=== PATIENT | male | born 1945 | race Caucasian/White ===

== ENCOUNTER 2019-06-02 10:40 | Inpatient (IN) | payer OTHER ==
--- NOTE | 2019-05-28 14:15 | HP ---
AMENDED REPORT NOW INCLUDES DESIGNATED COSIGNER HISTORY AND PHYSICAL: DATE OF ADMISSION/SURGERY: 06/02/19 DATE OF OFFICE VISIT: 05/23/19 SURGEON: Marjorie Pisano MD * (DICTATED BY JODY BONILLA) PROCEDURE: Left total knee replacement. CHIEF COMPLAINT: Left knee pain. HISTORY OF PRESENT ILLNESS: Mr. Evans is a 73-year-old gentleman who injured his left knee back in 1990. Since then he has had increasing pain in the left knee. Over the last year, he has had a 4/10 daily aching, chronic pain along the joint line of his knee. He can no longer walk more than a block without severe pain. He has difficulty stair climbing, kneeling and knee bending. He is starting to lose range of motion in the knee. He is unable to exercise because of the pain. He has tried antiinflammatories, physical therapy , brace wear, use of cane, steroid and lubricant injections in the past. At this point, he has failed conservative treatment. He is ready for surgical intervention. PAST MEDICAL HISTORY: 1. Hypertension. 2. Hypercholesteremia. 3. Osteoarthritis. 4. Prostate cancer. PAST SURGICAL HISTORY: 1. Right hand surgery in 1989. 2. Bladder surgery in 2002. MEDICATIONS: 1. Tamsulosin HCL 0.4 mg 1 p.o. daily. 2. Lisinopril 20 mg half a tablet p.o. daily. 3. Simvastatin 40 mg 1 p.o. daily. 4. Aspirin p.o. p.r.n. 5. Ibuprofen p.o. p.r.n. ALLERGIES: AMOXICILLIN and PENICILLIN. FAMILY HISTORY: History of coronary artery disease, hypertension, and stroke. SOCIAL HISTORY: The patient is retired. He lives alone. He is a former smoker. He smoked 20 cigarettes per day for 20 years, but he quit 30 years ago. Alcohol, he consumes about an alcoholic drink per week. He is normally active with walking and gardening. He is right hand dominant. REVIEW OF SYSTEMS: General: Negative for fevers, chills, night sweats, unexplained weight loss or gain. No known anesthesia problems. HEENT: Negative for headache, lightheadedness, syncopal episodes, visual changes. Integumentary: Negative for abrasions, lesions, open wounds. Positive for psoriasis on bilateral hands. Cardiothoracic: Negative for hypertension, chest pain, palpitations or edema. Respiratory: Negative for shortness of breath with exertion, chronic cough, wheezing. GI: Negative for nausea, vomiting, diarrhea, constipation, or GERD. : Negative for nocturia, urinary frequency, urgency, history of UTIs, or kidney problems. Positive for prostate cancer. Musculoskeletal: Positive for left knee pain. Negative for chronic or intermittent back pain or history of fractures. Neurologic: Negative for paraesthesias, numbness, history of seizure, stroke, poor balance. Negative for anxiety , depression. Endocrine: Negative for diabetes or thyroid issues. Hematologic: Negative for easy bruising, anemia, bleeding disorders, history of DVT. ID: Negative for history of MRSA infection, hep C, or HIV. PHYSICAL EXAMINATION GENERAL: Well-developed, well-nourished 73-year-old male in no acute distress. VITAL SIGNS: Height 64.5 inches, weight 191 pounds. Pulse 76, BP 138/68, respirations 18, pain level 2, BMI 32.3. HEENT: Normocephalic, atraumatic. PERRLA. Extraocular movements intact. NECK: Supple. No palpable lymph nodes. Throat is clear. PULMONARY: Lungs are clear to auscultation bilaterally. No wheezes, rales, or rhonchi. CARDIO: Regular rate and rhythm. S1 and S2 normal. No murmurs, rubs, or gallops. No edema. ABDOMEN: Positive bowel sounds, soft, nontender. MUSCULOSKELETAL: Bilateral lower extremity: The patient's skin is intact. No abrasions or open wounds. No palpable masses or lymph nodes. Distally no edema , varicosities or hyperreflexia. Left knee shows moderate to large effusion. There is varus deformity of the knee. He has 10 to 120 degrees of flexion at the knee. He has tenderness along the medial joint line. No varus or valgus instability. Negative Zachariah's. He has chronically enlarged appearing arthritic joint. Right knee shows no obvious effusions. No tenderness to palpation. Range of motion is 0 to 130 degrees of flexion. He has 5/5 ankle dorsiflexion and plantarflexion strength bilaterally. Full sensation to light touch in all nerves distributions and 2+ DP pulses bilaterally. NEUROLOGIC: A and O x3. Cranial nerves II through XII intact. Sensation is intact to light touch. DIAGNOSTIC STUDIES/LAB DATA: Multiple views of the patient's left knee shows severe end-stage arthritis. There is medial [id number] contact. There is tricompartmental degenerative arthritis, osteophyte formation and joint space narrowing. IMPRESSION: Left knee severe osteoarthritis. PLAN: The patient is scheduled to undergo left total knee arthroplasty with Dr. Pisano on 06/02/19. Dr. Pisano went over the procedure, as well as the risks and benefits with the patient. He elected to proceed. He will return to the office 10 to 14 days postop for followup and suture removal. He will be discharged from the hospital with Percocet for postoperative pain management and I-STOP was performed today in the office. JODY BROWN [id number]/CPS #: [id number]
--- NOTE | 2019-05-28 15:05 | HP ---
HISTORY AND PHYSICAL: DATE OF ADMISSION/SURGERY: 06/02/19 DATE OF OFFICE VISIT: 05/23/19 ATTENDING PHYSICIAN: Dr. Marjorie Pisano. PROCEDURE: Left total knee replacement. CHIEF COMPLAINT: Left knee pain. HISTORY OF PRESENT ILLNESS: Mr. Evans is a 73-year-old gentleman who injured his left knee back in 1990. Since then, he has had increasing pain in his left knee over the last year. He has had a 4 /10 daily aching, chronic pain along the joint line of his knee. He can no longer walk more than a b lock without severe pain. He has difficulty stair climbing, kneeling, and bending his left knee. He is starting to lose range of motion in the knee. He is unable to exercise because of the pain. He has tried anti-inflammatories, physical therapy, brace wear, use of cane, steroid and lubricant injec tions in the past without relief. At this point, he is ready for a total knee arthroplasty. PAST MEDICAL HISTORY: Hypertension, hypercholesterolemia, osteoarthritis, and prostate cancer. PAST SURGICAL HISTORY: He had right hand surgery in the . He had bladder surgery in 2002. MEDICATIONS: 1. Tamsulosin HCl. DICTATION ENDS HERE JODY BROWN [id number]/[facility] #: [id number]
--- NOTE | 2019-06-01 16:18 | CONS ---
CC: Dr. Pisano; Dr. Dustin Mijares * CONSULTATION NOTE: DATE OF CONSULT: 06/01/19 DATE OF ADMISSION: 06/02/19 HISTORY OF PRESENT ILLNESS: Mr. Evans is a 73-year-old white male who was diagnosed with prostate cancer in 2006 and was treated with brachytherapy and external beam radiation therapy at [facility] in April 2007. He had PSA recurrence and has been on intermittent hormone ablation therapy. He also developed a bladder tumor which was resected in 2010 and had periodic cystoscopies which showed no recurrent tumors. The patient is known to have a tight urethral stricture and whenever a followup cystoscopy needs to be performed, urethral dilation had to be performed.. The patient is scheduled to undergo a total left knee replacement by Dr. Pisano on 06/02/19. The patient was seen in my office today for cystoscopy and Soni catheter placement. Cystoscopy was performed showing recurrence of the tight stricture at the membranous urethra. The stricture was sequentially dilated to 18-Citizen [place] and the patient had a 14-Citizen [place] Coude catheter placed inside the bladder, draining clear urine. The patient received gentamicin 180 mg IM at the time of the instrumentation to decrease the risk of urinary tract infections with the anticipated joint replacement. PLAN/RECOMMENDATIONS: My recommendation is to keep the Soni catheter in place until the patient is ready to be discharged. The Soni catheter can then be removed and the patient monitored for good bladder emptying. If he has any difficulty voiding, please call me for evaluation. I will see the patient back in my office in 2 months for followup cystoscopy. [id number]/CPS #: [id number] MTDD
[~2019-06-02 10:40] MED LIST: Acetaminophen TAB* 325 MG PO ONE; Buffered Lidocaine 1% SYRIN* 1 ML/SYRINGE INTRADERM ONE; Dexamethasone TAB* 4 MG PO ONE; DiMENhydriNATE IV* 50 MG/ML VIAL IV PUSH PRN; Famotidine IV* 10 MG/ML 2 ML (20 mg) IV ONE; Gabapentin CAP(*) 300 MG PO ONE; HYDROmorphone INJ1* 1 MG/ML SYRINGE IV PRN; Lactated Ringers 1000 ML Bag* 1,000 ML IV SCH; Naloxone* 0.4 MG/ML 1 ML VIAL IV PRN; Ondansetron ODT TAB* 4 MG PO ONE; PROCHLORPERAZINE INJ 5 MG/ML 2 ML VIAL IV PRN; Tranexamic Acid 1,000 MG in NS 0.9% 50 ML* (outpatient use) IV SCH; celeCOXIB CAP* 200 MG PO ONE; fentaNYL* 50 MCG/ML 2 ML VIAL (100 MCG VIAL) IV PRN; oxyCODONE/Acetamin 5/325 MG* TAB PO PRN
--- OUTSIDE RECORDS SUMMARY | 2019-06-02 10:42 | XMS REPORT | Continuity of Care Document ---
:1945 External Reference #:[id number] Author Name JAKE Garcia Address [address] [place] [address] Care Team Providers Name Role Phone Dustin Mijares DO Primary Care Physician Unavailable Payers Date Identification Numbers Payment Provider Subscriber Policy Number: [id number] [facility]ly [facility] (Medicare) Lefty Evans PayID: [id number] [place] [id number] Effective: 1995 Group Name: Workers[employer] Lefty Evans [address] [place] [address] Problems Active Problems Provider Date Localized, primary osteoarthritis Marjorie Pisano M.D. Onset: 04/25/2019 Family History Date Family Member(s) Observation Comments General Heart Disease General Stroke General Hypertension Social History Type Date Description Comments Sex Unknown Lives With Alone Occupation Retired ETOH Use consumes 1-2 beers per day Tobacco Use Start: Unknown Patient is a former quit 30 years ago, End: Unknown smoker smoked 20 cigarettes a day for 20 years Recreational Drug Use Denies Drug Use Smoking Status Reviewed: 05/23/19 Patient is a former quit 30 years ago, smoker smoked 20 cigarettes a day for 20 years Exercise Type/Frequency Exercises regularly 3-5 miles walking daily Allergies, Adverse Reactions, Alerts Active Allergies Reaction Severity Comments Date Amoxicillin 11/11/2017 Penicillin Severe can't breathe 04/25/2019 Medications Active Medications SIG Qnty Indications Ordering Provider Date Tamsulosin HCL 1 by mouth every Unknown 0.4mg day Capsules Lisinopril 1/2 by mouth Unknown 20mg Tablets every day Simvastatin 1 by mouth every Unknown 40mg Tablets day Aspirin Unknown Ibuprofen Unknown History Medications Aspir-Low 1 by mouth every day Unknown - 04/24/[address] Vital Signs Date Vital Result Comment 05/23/2019 1:30pm Height 64.5 inches 5'4.50" Weight 191.00 lb Heart Rate 76 /min BP Systolic 138 mmHg BP Diastolic 68 mmHg Respiratory Rate 18 /min Pain Level 2 BMI (Body Mass Index) 32.3 kg/m2 04/25/2019 8:34am Height 64.5 inches 5'4.50" Weight 192.00 lb Heart Rate 52 /min BP Systolic 160 mmHg BP Diastolic 94 mmHg BMI (Body Mass Index) 32.4 kg/m2 12/02/2017 12:32pm Height 66 inches 5'6" Weight 175.25 lb Heart Rate 50 /min BP Systolic Sitting 140 mmHg Rue reg cuff BP Diastolic Sitting 74 mmHg Rue reg cuff BP Systolic Standing 148 mmHg Lue reg cuff BP Diastolic Standing 76 mmHg Lue reg cuff BP Systolic Lying Down 146 mmHg Lue reg cuff BP Diastolic Lying Down 76 mmHg Lue reg cuff Respiratory Rate 16 /min BMI (Body Mass Index) 28.3 kg/m2 Ejection Fraction 60-65% 11/06/2017-echo Results Test Date Facility Test Result H/L Range Note Inr/Protime 05/20/2019 [facility] Inr 0.91 N 0.82-1.[address] [place] [address] [phone] Laboratory test 05/20/2019 [facility] Partial 35.7 seconds N 26.0-38.[address] [place] [address] PTT [phone] Urinalysis 05/20/2019 [facility] Urine Color Yellow Profile [address] [place] [address] [phone] Urine Appearance Clear Urine Specific Alicia 1.017 N 1.010-1.030 Urine pH 5.0 N 5-9 Urine Urobilinogen Negative Negative Urine Ketones Negative Negative Urine Protein Negative Negative Urine Leukocytes Negative Negative Urine Blood Negative Negative Urine Nitrite Negative Negative Urine Bilirubin Negative Negative Urine Glucose Negative Negative Comp Metabolic Panel 05/20/2019 [facility] Sodium 141 mmol/L N [address] [place] [address] [phone] Potassium 4.3 mmol/L N 3.5-5.0 Chloride 108 mmol/L N 101-111 Co2 Carbon Dioxide 25 mmol/L N 22-32 Anion Gap 8 mmol/L N 2-11 Glucose 96 mg/dL N 70-100 Blood Urea Nitrogen 24 mg/dL N 6-24 Creatinine 1.09 mg/dL N 0.67-1.17 BUN/Creatinine Ratio 22.0 High 8-20 Calcium 9.7 mg/dL N 8.6-10.3 Total Protein 6.8 g/dL N 6.4-8.9 Albumin 4.2 g/dL N 3.2-5.2 Globulin 2.6 g/dL N 2-4 Albumin/Globulin Ratio 1.6 N 1-3 Total Bilirubin 0.50 mg/dL N 0.2-1.0 Alkaline Phosphatase 58 U/L N 34-104 Alt 16 U/L N 7-52 Ast 17 U/L N 13-39 Egfr Non- 66.1 >60 Egfr 80.0 >60 2 Type & Screen 05/20/2019 [facility] Patient Blood Type AB Positive [address] [place] [address] [phone] Antibody Screen NEGATIVE CBC Auto Diff 05/20/2019 [facility] White Blood 7.0 10^3/uL N 3.5-10.[address] [place] [address] [phone] Red Blood Count 4.25 10^6/uL N 4.18-5.48 Hemoglobin 13.1 g/dL Low 14.0-18.0 Hematocrit 39 % Low 42-52 Mean Corpuscular Volume 91 fL N 80-94 Mean Corpuscular Hemoglobin 31 pg N 27-31 Mean Corpuscular HGB Conc 34 g/dL N 31-36 Red Cell Distribution Width 13 % N 10-15 Platelet Count 304 10^3/uL N 150-450 Mean Platelet Volume 8.5 fL N 7.4-10.4 Abs Neutrophils 4.5 10^3/uL N 1.5-7.7 Abs Lymphocytes 1.6 10^3/uL N 1.0-4.8 Abs Monocytes 0.6 10^3/uL N 0-0.8 Abs Eosinophils 0.2 10^3/uL N 0-0.6 Abs Basophils 0.0 10^3/uL N 0-0.2 Abs Nucleated RBC 0.0 10^3/uL Granulocyte % 63.8 % Lymphocyte % 23.5 % Monocyte % 8.6 % Eosinophil % 3.5 % Basophil % 0.6 % Nucleated Red Blood Cells % 0.0 Urine Culture And 05/20/2019 [facility] Urine Culture SEE RESULT [address] [place] [address] [phone] Xray 04/25/2019 [facility] Knee 3 Views <pending> [address] [place] [address] [phone] 1 Standard intensity warfarin therapeutic range: 2.0-3.0 High intensity warfarin therapeutic range: 2.5-3.5 2 Because ethnic data is not always readily available, this report includes an eGFR for both -Americans and non- Americans. The National Kidney Disease Education Program (NKDEP) does not endorse the use of the MDRD equation for patients that are not between the ages of 18 and 70, are , have extremes of body size, muscle mass, or nutritional status, or are non- or non-. According to the National Kidney Foundation, irrespective of diagnosis, the stage of the disease is based on the level of kidney function: Stage Description GFR(mL/min/1.73 m(2)) 1 Kidney damage with normal or decreased GFR 90 2 Kidney damage with mild decrease in GFR 60-89 3 Moderate decrease in GFR 30-59 4 Severe decrease in GFR 15-29 5 Kidney failure <15 (or dialysis) 3 SEE RESULT BELOW Name: LEFTY EVANS : [address]: Marjorie Pisano MD Acct: [id number] Unit: [id number] AGE: 73 Location: PAT Re05/20/19 SEX: M Status: REG REF SPEC: [id number] MARGUERITE: 05/20/19 [facility] DR: Marjorie Pisano MD REQ: [id number] RECD: 05/20/19 STATUS: SANTOS BUNN DR: Dustin Mijares DO _ SOURCE: URINE SPDESC: ORDERED: Urine Culture QUERIES: Urine Source: Random Procedure Result Reported Site Urine Culture Final 05/21/19- 1601 ML No Growth (<1,000 CFU/mL) * ML - Main Lab . END OF REPORT DEPARTMENT OF PATHOLOGY, [address] [place] [address] Bi Marx M.D. Director [facility] # [id number] Procedures Date Code Description Status 12/02/2017 99562 EKG Tracing & Interpretation Completed 11/06/2017 48378 ECHO Transthoracic, Real-Time 2D With Doppler And Color Completed Flow 11/06/2017 30009 ECHO Transthoracic, Real-Time 2D With Doppler And Color Completed Flow Encounters Type Date Location Provider Dx Diagnosis Office Visit 04/25/2019 [facility] Marjorie Pisano, M25.562 Pain in left knee 8:30a Services Of .Pee Torres M25.462 Effusion, left knee M17.12 Unilateral primary osteoarthritis, left knee Office Visit 12/02/2017 1:00p [facility] Alex S. I35.0 Nonrheumatic Of Investor Relations Coordinator Carey, DO aortic (valve) FACC stenosis E78.5 Hyperlipidemia, unspecified I10 Essential (primary) hypertension C61 Malignant neoplasm of prostate F17.201 Nicotine dependence, unspecified, in remission R00.1 Bradycardia, unspecified Plan of Treatment Future Appointment(s):06/15/2019 8:15 am - Marjorie Pisano M.D. at [facility]06/02/2019 2:30 pm - Dale Estes PA-C at [facility]06/02/2019 2:30 pm - JAKE Garcia at [facility].06/02/2019 2:30 pm - Marjorie Pisano M.D. at [facility]05/23/2019 - Marjorie Pisano M.D.M17.12 Unilateral primary osteoarthritis, left kneeFollow up:10-14 post opM25.562 Pain in left knee
--- OUTSIDE RECORDS SUMMARY | 2019-06-02 10:43 | XMS REPORT | Continuity of Care Document ---
:1945 External Reference #:[id number] Author Name [place] Care Team Providers Name Role Phone Dustin Mijares DO Primary Care Physician Unavailable Payers Date Identification Numbers Payment Provider Subscriber Policy Number: [id number] [facility] (Medicare) Dom Evans PayID: [id number] [address] Problems Active Problems Provider Date Localized, primary [...] every day Unknown - 04/24/2019 81mg Tablets Vital Signs Date Vital Result Comment 05/23/2019 [...] Date Facility Test Result H/L Range Note Xray 04/25/2019 [facility] Knee 3 Views LT <pending> [address] [place] [address] [phone] Procedures Date Code Description Status 12/02/2017 22154 EKG Tracing & Interpretation Completed 11/06/2017 89719 ECHO Transthoracic, Real-Time 2D With Doppler And Color Completed Flow 11/06/2017 76024 ECHO Transthoracic, Real-Time 2D With Doppler And Color Completed Flow Encounters Type Date Location Provider Dx Diagnosis Office Visit 04/25/2019 Orthopedic Marjorie Pisano, M25.562 Pain in left knee 8:30a Services Of Danii Torres M25.462 Effusion, left knee M17.12 Unilateral primary osteoarthritis, left knee Office Visit 12/02/2017 1:00p [facility] Alex SVinod I35.0 Nonrheumatic Of 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 at [facility]..06/02/2019 4:30 pm - [facility]/2019 4:30 pm - JAKE Garcia at [facility].06/02/2019 4:30 pm - Marjorie Pisano M.D. at [facility].05/23/2019 - Marjorie Pisano M.D.M17.12 Unilateral primary osteoarthritis, left kneeFollow up:10-14 post opM25.562 Pain in left knee
[2019-06-02] MEDS ORDERED: Buffered Lidocaine 1% SYRIN* 1 ML/SYRINGE INTRADERM ONE (11:21)
[2019-06-02] MEDS ORDERED: Ondansetron ODT TAB* 4 MG ONE (11:21)
[2019-06-02] MEDS ORDERED: Acetaminophen TAB* 325 MG ONE (11:21)
[2019-06-02] MEDS ORDERED: celeCOXIB CAP* 200 MG ONE (11:21)
[2019-06-02] MEDS ORDERED: Dexamethasone TAB* 4 MG ONE (11:21)
[2019-06-02] MEDS ORDERED: Gabapentin CAP(*) 300 MG ONE (11:21)
[2019-06-02] MEDS ORDERED: Famotidine IV* 10 MG/ML 2 ML (20 mg) ONE (11:22)
[2019-06-02] MEDS ORDERED: Clindamycin 900 MG IVPREMIX(* 900 MG/50 ML SDV IV ONE (11:23)
[2019-06-02] MEDS ORDERED: KETAMINE HCL* 50 MG/ML 10 ML VIAL ONE (12:21)
[2019-06-02] MEDS ORDERED: fentaNYL* 50 MCG/ML 2 ML VIAL (100 MCG VIAL) ONE (12:21)
[2019-06-02] MEDS ORDERED: Midazolam* 1 MG/ML 5 ML VIAL (5 MG) ONE (12:21)
[2019-06-02] MEDS ORDERED: ROPIVACAINE 5 MG/ML 30 ML BTL (0.5%) ONE (15:16)
[2019-06-02] MEDS ORDERED: Phenylephrine 10 MG/ML VIAL* 1 ML VIAL ONE (16:03)
[2019-06-02] MEDS ORDERED: Bupivacaine 0.25% EPI 200,000* 30 ML SDV ONE (16:03)
[2019-06-02] MEDS ORDERED: Lidocaine 2% PF * 5 ML VIAL ONE (16:03)
[2019-06-02] MEDS ORDERED: Bupivacaine 0.5% SDV PF* 30ML VIAL ONE (16:03)
[2019-06-02] MEDS ORDERED: oxyCODONE/Acetamin 5/325 MG* TAB PO PRN (16:20)
[2019-06-02] MEDS ORDERED: Bisacodyl SUPP* 10 MG SUPP PR PRN (16:20)
[2019-06-02] MEDS ORDERED: Magnesium Hydroxide LIQ* 30 ML UDC PO PRN (16:20)
[2019-06-02] MEDS ORDERED: Morphine INJ* 2 MG/ML 1 ML SYRINGE (TWO MG - NEW SYRINGE VERSION) IV PRN (16:20)
[2019-06-02] MEDS ORDERED: diPHENhydraMINE IV* 50 MG/ML 1 ml VIAL (BENADRYL) IV PRN (16:20)
[2019-06-02] MEDS ORDERED: Acetaminophen TAB* 325 MG PO PRN (16:20)
[2019-06-02] MEDS ORDERED: Ondansetron INJ* 2 MG/ML VIAL IV PRN (16:20)
[2019-06-02] MEDS ORDERED: Cyclobenzaprine TAB* 10 MG PO PRN (16:20)
[2019-06-02] MEDS ORDERED: Tamsulosin CAP* 0.4 MG PO SCH (18:00)
[2019-06-02] MEDS: Lactated Ringers 1000 ML Bag* 1,000 ML IV SCH (18:13)
--- NOTE | 2019-06-02 18:20 | OP ---
Operative Report - Blank - Operative Report Date of Operation: 06/02/19 Note: LEFTY COE 1945 Date of Surgery: 06/02/19 Marjorie Pisano MD Clinical Informaticist: Kerry VERA did help throughout the procedure with preparation of the knee, wound retraction, manipulation of the knee, and wound closure. Anesthesiologist: Benji Yeager MD Anesthesia Type: Spinal Preoperative Diagnosis: Left severe degenerative osteoarthritis of the knee Postoperative Diagnosis: As above Procedure Performed: Left Total Knee Arthroplasty Tourniquet time: 53 minutes Complications: None Specimen: Bone and cartilage from the left knee joint sent to pathology. Hardware Used: Cemented [employer] total knee hardware was used - For the femur a size 6 left narrow legion posterior stabilized femoral component, for the tibia a size 5 left lesa II tibial baseplate, for the insert a size 9mm 5 -6 posterior stabilized articular polyethylene insert, and for the patella a size 35 3-peg all poly patella. Brief History/Indication: LEFTY COE was known in clinic and had a history of severe left knee pain and swelling. He failed conservative treatment with anti-inflammatories, pain pills, intra-articular injections and physical therapy. He elected to undergo left total knee arthroplasty due to continued pain and decreased quality of life. Radiographs showed severe end stage osteoarthritis of the knee with bone on bone contact. Informed consent was obtained from the patient. He understood the risks of surgery included but were not limited to: bleeding, infection, damage to nearby structures, intraoperative fracture, nerve palsy, failure of the hardware, early loosening, knee stiffness or loss of motion, anesthesia complications, stroke, heart attack , blood clot and . He wished to proceed. Intra-Operative Findings: Intraoperatively the patient was noted to have severe loss of cartilage in all 3 compartments of the knee. Description of the Procedure: LEFTY COE was identified in the preanesthesia unit. His left knee was marked as the correct operative side. Informed consent was signed and placed in the chart. The patient was taken to the operating room and placed under anesthesia without complication. A willis catheter was placed. A tourniquet was placed on the left thigh. The left lower extremity was prepped and draped in the usual sterile fashion. Preoperative time-out was made to correctly identify the patient, side and site. Appropriate intraoperative antibiotics were given within one hour of incision. Tourniquet was inflated. A midline incision was made and carried sharply down to the extensor mechanism. A new 10 blade was used to make a standard medial parapatellar arthrotomy. The patella was subluxed laterally. Electrocautery was used to dissect soft tissue off the superomedial tibia to the midsagittal plane. The knee was flexed up. The anterior horn of the lateral meniscus and the ACL were sharply incised. A drill was used to enter the distal femur. The intramedullary distal femoral cutting guide was pinned on the distal femur. The oscillating saw was used to make the distal femoral cut. The external rotation guide was pinned on the distal femur and the distal femur was sized to a size 6. The size 6 multi-cutting jig was pinned on the distal femur. The oscillating saw was used to make the appropriate 4 chamfer cuts. Next the PCL was completely released. The extramedullary tibial cutting guide was pinned on the proximal tibia and the oscillating saw was used to make the proximal tibial cut perpendicular to the mechanical axis of the tibia. The bone was carefully removed. The knee was brought out into full extension. The spacer block was placed and had excellent fit with the knee in full extension. The medial and lateral ligaments were well balanced. The flexion and extension gaps were well balanced. The knee was flexed up. Lamina flour blender was placed both medially and laterally. Any remaining meniscus was removed with electrocautery. Curved osteotome was used to remove any posterior osteophytes. The tibial tray and drop ranjeet were placed and confirmed a satisfactory tibial cut. The size 6 left narrow femoral trial was impacted onto the distal femur. This trial had excellent fit and stability. The box for the posterior stabilized implant was prepared using a box cut osteotome and a reamer. Next a tibial tray trial and 9 mm insert trial was placed. The knee was taken through a range of motion and had full extension to 130 degrees of flexion. Patellofemoral tracking was satisfactory. The patella was inverted and sized to a size 35. Three peg holes were drilled through the size 35 drill guide. The trial patella was placed and the knee was taken through a range of motion. There was satisfactory patellofemoral tracking. All trials were removed. The tibia was subluxed anteriorly and sized to a size 5. The proximal tibial was prepared with a size 5 keel punch. All bony cut surfaces were irrigated with sterile saline and dried. Final implants were cemented into place starting with the tibia, followed by the femur, and last the patella. A 9 mm insert trial was placed and the knee was brought into full extension. Tourniquet was turned down and the knee was copiously irrigated with sterile saline. Electrocautery was used to obtain meticulous hemostasis. Once the cement had fully cured, the insert trial was removed. Any excess cement was removed from around the hardware and capsule. Final insert chosen was a 9 mm posterior stabilized Lesa II articular insert size 5-6. Stability of the insert was checked and noted to be stable. The extensor mechanism was closed using number 1 vicryls. The rest of the incision was closed in a layered fashion using 0 and 2-0 vicryls. The skin was closed using 3-0 nylon suture. Sterile xeroform, 4x4s and webril were used to cover the incision. Hieu wrap and cold pack were used to cover the dressings. The patients anesthesia was reversed without difficulty. He was taken to the PACU in stable condition. Intended weight-bearing will be as tolerated.
[2019-06-02] MEDS: Clindamycin 600 MG IVPREMIX(* 600 MG/50 ML SDV IV SCH (21:41)
[2019-06-02] MEDS: Magnesium Hydroxide LIQ* 30 ML UDC PO SCH (21:42)
[2019-06-02] MEDS: Docusate CAP* 100 MG PO SCH (21:44)
--- NOTE | 2019-06-02 21:59 | CONS ---
CC: Dr. Marjorie Pisano; Dr. Dustin Mijares * CONSULTATION REPORT: DATE OF CONSULT: 06/02/19 CONSULTING PROVIDER: Dr. Marjorie Pisano. MY ATTENDING WHILE IN THE HOSPITAL: Dr. Janey Escobar. PRIMARY CARE PROVIDER: Dr. Dustin Mijares. REASON FOR CONSULTATION: Comanagement of comorbid medical conditions. HISTORY OF PRESENT ILLNESS: Mr. Evans is a 73-year-old male with past medical history significant for hypertension, hypercholesterolemia, prostate cancer, and bladder cancer with urethral stricture, who today underwent an elective left total knee replacement and is doing well postoperatively. The patient denies any pain at this point due to the anesthesia. The patient denies fever, chills, chest pain, shortness of breath, dizziness, nausea, or vomiting. The patient preoperatively had no recent changes in medications. He took ibuprofen the day before his surgery. He last took his lisinopril the day before his surgery as well, and his tamsulosin the night before his surgery. The patient denied any dyspnea on exertion, chest pain, shortness of breath, pneumonia, cough or sick contacts. The patient has no history of DVT. The patient denies any other complaints. PAST MEDICAL HISTORY: 1. Hypertension. 2. Hypercholesterolemia. 3. Osteoarthritis. 4. Prostate cancer, status post radiation 12 years ago. 5. Urethral stricture. 6. Bladder cancer, status post resection. PAST SURGICAL HISTORY: Right hand surgery in 1989, bladder cancer resection in 2002. MEDICATIONS: 1. Tamsulosin 0.4 mg p.o. nightly. 2. Lisinopril 10 mg p.o. daily. 3. Simvastatin 40 mg p.o. daily. 4. Aspirin as needed for pain. 5. Ibuprofen as needed for pain. ALLERGIES: AMOXICILLIN and PENICILLIN. FAMILY HISTORY: The patient's mother in a car accident. The patient's father from an [place]. The patient has a sister who is healthy. 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 The patient lives alone. The patient quit smoking 34 years ago and has a [id number] history. He is generally very active. He drinks a beer a day. REVIEW OF SYSTEMS: A 14-point review of systems was reviewed and negative except as above in the HPI. PHYSICAL EXAM: General: The patient is a 73-year-old male, who appears his stated age, sitting comfortably in the bed, in no acute distress. Vital Signs: At the time of evaluation, temperature 96.8, pulse rate 46, respiratory rate 17, oxygen saturation 98% on room air, blood pressure 145/61. HEENT: Head: Normocephalic, atraumatic. Sclerae anicteric. No conjunctival injection. Nasal mucosa moist. Oral mucosa moist. No pharyngeal erythema, discharge, or exudate. Neck: Supple, nontender. No lymphadenopathy. No carotid bruits auscultated. No JVD. Cardiac: Regular rate and rhythm. No clicks, murmurs, gallops, or rubs. Pulses are 2+ in the dorsalis pedis, posterior tibialis, and radial areas. Respiratory: Clear to auscultation bilaterally. No wheezes, rales, or rhonchi. Good air exchange bilaterally. Abdomen: Soft, nontender, nondistended. Bowel sounds present and normoactive in all 4 quadrants. No hepatospleno-megaly. No abdominal bruits auscultated. No hepatojugular reflux. Genitourinary: No suprapubic or CVA tenderness. Skin: Clean and intact. No rash. Left knee incision covered in a bulky dressing. Neuro: Cranial nerves II through XII intact. Diminished sensation and strength in the lower extremities due to anesthesia. Psychiatric: Pleasant and cooperative. DIAGNOSTIC STUDIES/LAB DATA: Laboratory data preoperatively: White blood cell count 7.0, hemoglobin 13.1, platelet count 304, INR 0.91, aPTT 35.7. Sodium 141 , potassium 4.3, chloride 100, carbon dioxide 25, anion gap 8, BUN 24, creatinine 1.09, glucose 96, calcium 9.7, bilirubin 0.5, AST 17, ALT 16, alkaline phosphatase 58. Protein 6.8, albumin 4.2, globulin 2.6. Urine unremarkable. ASSESSMENT AND PLAN/IMPRESSION: Mr. Evans is a 73-year-old male with past medical history significant for hypertension, hypocholesterolemia, osteoarthritis, prostate cancer, and bladder cancer, who is status post left total knee replacement and is doing well. 1. Postoperative state. Management per Orthopedics. The patient should have PT/OT. The patient should have his Soni removed when able, though this would likely not be done in normal protocol due to difficulty with replacement. The patient received 1 dose of gentamicin with his Soni insertion. The patient follows with Dr. Chester as outpatient. The patient has no current issues, no hematuria. The patient should have a bowel regimen, PT/OT, fluids until he is able to tolerate oral intake adequately. 2. Bradycardia. The patient is bradycardic postoperatively. This is likely anesthesia reaction. He is asymptomatic. 3. Hypertension. The patient is currently normotensive. Hold the patient's lisinopril perioperatively given spinal anesthesia and resume when able. 4. Urethral stricture. Management as above with tamsulosin and Soni catheter. 5. DVT prophylaxis: Eliquis per Cardiology. 6. FEN: The patient will have a regular unrestricted diet, to get intake as tolerated. 7. Disposition: Per Orthopedics. TIME SPENT: Approximately 45 minutes was spent on this consultation, 30 of which was spent [id number] with the patient, obtaining history and physical, and discussing the treatment plan. This plan was discussed with my attending Dr. Janey Escobar, and she is in agreement. JODY CAIN [id number]/CPS #: [id number] MTDD
[2019-06-03] MEDS: oxyCODONE TAB* 5 MG TAB PO PRN ×2 (00:05→07:52)
[2019-06-03 05:14] LABS: Hematocrit 33 % (42-52); Hemoglobin 11.3 g/dL (14.0-18.0); Mean Platelet Volume 7.6 fL (7.4-10.4); Platelet Count 248 10^3/uL (150-450)
[2019-06-03 05:28] LABS: BUN/Creatinine Ratio 16.4 (8-20); Calcium 8.9 mg/dL (8.6-10.3); EGFR African American 79.2 (>60); EGFR Non-African American 65.4 (>60); Potassium 4.5 mmol/L (3.5-5.0)
[2019-06-03] MEDS: Lactated Ringers 1000 ML Bag* 1,000 ML IV SCH (05:37)
[2019-06-03] MEDS: oxyCODONE/Acetamin 5/325 MG* TAB PO PRN ×2 (05:37→12:30)
[2019-06-03] MEDS: Clindamycin 600 MG IVPREMIX(* 600 MG/50 ML SDV IV SCH ×2 (05:39→13:49)
[2019-06-03] MEDS: Docusate CAP* 100 MG PO SCH (07:52)
[2019-06-03] MEDS: Magnesium Hydroxide LIQ* 30 ML UDC PO SCH (07:52)
[2019-06-03] MEDS ORDERED: Vitamin THERAPEUTIC TAB PO SCH (09:00)
[2019-06-03] MEDS ORDERED: Atorvastatin* 20 MG TAB PO SCH (09:00)
[2019-06-03] MEDS ORDERED: Apixaban* 2.5 MG TAB PO SCH (09:00)
[2019-06-03] MEDS ORDERED: LISINOPRIL 10 MG PO SCH (09:00)
--- NOTE | 2019-06-03 11:13 | DS ---
Orthopedic Discharge Summary - Discharge Summary Date of Admission:06/02/19 Date of Discharge: 06/03/19 Date of Surgery: 06/02/19 Attending Orthopedic Provider: Pre-operative Diagnosis: Degenerative arthritis left knee Operative Procedure: Left total knee replacement Disposition of Patient: home Condition of Patient: stable History: LEFTY COE is a 73 year old M with years of increasingly severe left knee pain. Patient has failed conservative management and has elected to undergo a left total knee replacement Hospital Course: LEFTY was admitted to [facility] on 06/02/19. Patient underwent a left total knee replacement without complication followed by a brief recovery in PACU and transfer to the Short Stay Surgical Unit in stable condition. Our hospitalist service, physical therapy and occupational therapy also participated in this patients care. Post-op day 1: patient was alert and in no acute distress. Dressing was clean, dry and intact. Operative extremity dorsiflexion and plantarflexion intact, sensation intact to light touch distally , DP2+, dressing was changed, incision was clean, dry and intact. Patient was deemed to be medically and orthopedically stable for discharge. Physical therapy goals were met. Home Medications Medication Instructions Recorded Confirmed Type Lisinopril 10 mg PO QAM 06/02/14 06/02/19 History Simvastatin 40 mg PO QAM 06/02/14 06/02/19 History Acetaminophen [Tylenol Extra 500 mg PO Q6H PRN 05/20/19 06/02/19 History Strength] Tamsulosin CAP* [Flomax CAP*] 0.4 mg PO QPM 05/20/19 06/02/19 History Apixaban* [Eliquis*] 2.5 mg PO BID #60 tab 06/03/19 Rx Docusate CAP* [Colace Cap*] 100 mg PO BID cap 06/03/19 Rx oxyCODONE/Acetamin 5/325 MG* 1 - 2 tab PO Q4H PRN #70 tab MDD 10 06/03/19 Rx [Percocet 5/325 TAB*] Instructions following Orthopedic Surgery: Activity: * Weight Bearing as tolerated * Continue physical therapy and occupational therapy exercises as shown Wound care: * OK to shower on post-op day 3, no bathing, swimming, or submerging wound. * Use gentle soap, pat dry. Cover with gauze, KIMBERLY wrap or tape. * Visiting home nurse to do wound checks. Call Orthopedic office for: * Increased drainage * Redness * Increased pain * Fever Go to ER with shortness of breath or chest pain. Diet: * Regular diet * Increase fluids and fiber to prevent constipation. * Continue to use stool softeners, call office if no bowel motion within 48 hours. Medications See Home Medication List in your packet for medications that you should take after discharge. DVT Prophylaxis: Eliquis Dosin.5 mg, 1 tab every 12 hours x 30 days Pain Control: Percocet Dosin/325 mg 1-2 tabs by mouth every 4-6 hours as needed for pain. Maximum of 10 tabs per day. Please note that Percocet contains Tylenol (acetaminophen). Maximum daily dose of Tylenol is 4000 mg from all sources. Antibiotics are required prior to any dental work. FOLLOW UP: Follow up with Dr. Pisano Within 10-14 days, call for appointment Please call our office with any questions or concerns ([phone])
[2019-06-03 11:43] VITALS: BP 145/66
== END 2019-06-03 15:50 | disposition home health service (06) | DRG 302 ==
LOC: AA 10:40 → SSU 18:05
PROVIDERS: ADMIT Orthopaedic Surgery Adult Reconstructive Orthopaedic Surgery; ATTEND Orthopaedic Surgery Adult Reconstructive Orthopaedic Surgery
PROC: 0SRD0J9 Replacement of Left Knee Joint with Synthetic Substitute, Cemented, Open Approach (ICD-10-PCS; 2019-06-02)
PROC: 0T9B8ZZ Drainage of Bladder, Via Natural or Artificial Opening Endoscopic (ICD-10-PCS; principal; 2019-06-02 14:00)
DX: M17.12 Unilateral primary osteoarthritis, left knee (principal); G89.29 Other chronic pain; I10 Essential (primary) hypertension; L40.9 Psoriasis, unspecified; M25.462 Effusion, left knee; N35.919 Unspecified urethral stricture, male, unspecified site; R00.1 Bradycardia, unspecified; N35.913 Unspecified membranous urethral stricture, male; M25.762 Osteophyte, left knee; E78.00 Pure hypercholesterolemia, unspecified; Z85.46 Personal history of malignant neoplasm of prostate; Z88.0 Allergy status to penicillin; Z88.1 Allergy status to other antibiotic agents; Z82.49 Family history of ischemic heart disease and other diseases of the circulatory system; Z82.3 Family history of stroke; Z87.891 Personal history of nicotine dependence; Z72.89 Other problems related to lifestyle; Z92.3 Personal history of irradiation; Z85.51 Personal history of malignant neoplasm of bladder
CPT/HCPCS: 36415; 80048; 85014; 85018; 85049; A9270-GY; G8978-GP-CJ; G8979-GP-CI; J2250; J2795; J3010; J3490; J8540